=== PATIENT | female | born 1975 | race Caucasian/White ===

== ENCOUNTER 2020-01-20 16:10 | Day surgery (SDC) | payer OTHER ==
[~2020-01-20] VITALS: Ht 152.4 cm; Wt 54.4 kg
[2020-01-21] MEDS ORDERED: ULTRAM50 MG PO (10:54)
[2020-01-21] MEDS ORDERED: PYRIDIUM200 MG PO (10:55)
[2020-01-21] MEDS ORDERED: TAMS0.4C PO (10:55)
== END 2020-01-21 13:00 | disposition home or self-care (01) ==
LOC: ER 16:10 → SEC-K 01-21 05:31 → ER 01-21 05:31 → CIR.AMB 01-21 06:00 → EDSTATUS 01-21 09:00 → O/R 01-21 10:35 → SEC-K 01-21 10:35 → CIR.AMB 01-21 13:00 → O/R 01-21 16:05
PROVIDERS: ATTEND Surgery
DX: N35.82 Other urethral stricture, female (principal); N13.5 Crossing vessel and stricture of ureter without hydronephrosis